=== PATIENT | female | born 1990 | race Caucasian/White ===

== ENCOUNTER → 2019-01-18 | Outpatient (CLI) | payer BC ==
[2019-01-18 12:12] LABS: HGB 13.8 gm/dL (11.4-16.0); MCH 29.2 pg (25.0-35.0); MCHC 34.4 g/dL (31.0-37.0); MCV 84.7 fL (80.0-100.0); Mean Platelet Volume 6.6; Platelet Count 329 k/uL (150-450); RBC 4.72 m/uL (3.80-5.40); RDW 14.1 % (11.5-15.5); WBC 8.3 k/uL (3.8-10.6)
[2019-01-18 18:56] LABS: HIV 1 AB Non-Reactive (Non-Reactive); HIV 2 AB Non-Reactive (Non-Reactive); HIV AB P24 Non-Reactive (Non-Reactive); HIV P24 AG Non-Reactive (Non-Reactive)
[2019-01-18 20:55] LABS: Hepatitis B Surface Antigen Non-Reactive (Non-Reactive)
== END ==
LOC: LABWHC1 10:42
PROVIDERS: ATTEND Obstetrics & Gynecology
DX: O09.291 Supervision of pregnancy with other poor reproductive or obstetric history, first trimester (principal); Z3A.00 Weeks of gestation of pregnancy not specified
CPT/HCPCS: 36415; 81420; 81422; 85027; 86762; 86780; 86850; 86900; 86901; 87086; 87340; 87390

== ENCOUNTER 2019-07-15 02:24 | Outpatient (CLI) | payer BC ==
[2019-07-15 03:52] VITALS: BP 131/86; PULSE 112; RESP 16; TEMP 96.7
--- NOTE | 2019-07-31 11:48 | P.MSEPDOC ---
Presenting Problems - Arrival Data Date of Arrival on Unit: 07/15/19 Time of Arrival on Unit: 02:24 Mode of Transport: Ambulatory - Complaint OB-Reason for Admission/Chief Complaint: Possible Onset of Labor Comment: Patient presents to triage with contractions that are approximately 7 minutes apart, that she has been experiencing contractions for about a week, but tonight they have gotten increasingly uncomfortable. Medical History - Information : 5 Para: 2 Term: 2 : 0 Abortions: Spontaneous or Elective: 2 Number of Living Children: 2 - Gestational Age Gestational Age by TERRELL (wks/days): 37 Weeks and 5 Days - History Complications: GDM Comment: Patient did not do her 3hr gtt, Dr. Seals is treating her as a gestational diabetic. Review of Systems - Review of Systems Constitutional: No problems Breast: No problems ENT: No problems Cardiovascular: No problems Respiratory: No problems Gastrointestinal: No problems Genitourinary: No problems Musculoskeletal: No problems Neurological: No problems Skin: No problems Vital Signs - Temperature Temperature: 96.7 F Temperature Source: Temporal Artery Scan - Pulse Pulse Oximetery Pulse Rate: 112 Pulse Assessment Method: Automatic Cuff - Respirations Respiratory Rate: 16 Oxygen Delivery Method: Room Air - Blood Pressure Sitting Blood Pressure: 131/86 Blood Pressure Mean: 101 Blood Pressure Source: Automatic Cuff Medical Screen Scoring (Pre) - Cervical Exam Dilation: 1-3 cm = 1 Membranes: Intact - Uterine Contractions Frequency: > 5 minutes apart = 1 Duration: > 40 seconds = 2 Intensity: N/A - Maternal Vital Signs Maternal Temperature: N/A Maternal Blood Pressure: N/A Signs of Preeclampsia: N/A Maternal Respirations: N/A - Maternal Trauma Maternal Trauma: N/A - Assessment - Baby A Baseline FHR: 130 Heart Rate - NICHD Category: Category I (Normal) = 0 NST: Reactive Position: N/A Station: N/A - Total Score - Baby A Total Score - Baby A: 4 - Total Score - Baby B Total Score - Baby B: 4 - Total Score - Baby C Total Score - Baby C: 4 - Level of Risk - Baby A Level of Risk - Baby A: Low (0-5) - Level of Risk - Baby B Level of Risk - Baby B: Low (0-5) - Level of Risk - Baby C Level of Risk - Baby C: Low (0-5) Physician Notification (Pre) - Physician Notified Physician Notified Date: 07/15/19 Physician Notified Time: 03:38 New Order Received: Yes - Notification Comment Comment: Orders given to discharge patient home, encourage patient to increased fluid intake, education on signs and symptoms of labor and labor progression, patient to follow up with Dr. Seals in the office for her regularly scheduled appt on 07/16 Disposition - Disposition OB Disposition: Discharge to home, Written follow up instructions reviewed Discharge Date: 07/15/19 Discharge Time: 03:43 I agree with the RN Medical Screening Exam: Yes Risk & Benefit of care provided described in d/c instruction: Yes Diagnosis: FALSE LABOR AT OR AFTER 37 COMPLETED WEEKS OF GESTATION
== END 2019-07-15 03:43 | disposition home or self-care (01) ==
LOC: FBPOP 02:24
PROVIDERS: ATTEND Obstetrics & Gynecology Obstetrics
DX: O47.1 False labor at or after 37 completed weeks of gestation (principal); Z3A.37 37 weeks gestation of pregnancy
CPT/HCPCS: 59025; 99213

== ENCOUNTER 2019-07-24 09:42 | Inpatient (IN) | payer BC ==
[2019-07-22 16:08] VITALS: BMI 30.2
[2019-07-24] MEDS: LACTATED RINGERS 1,000 ML IV SCH ×3 (10:25→16:24)
[2019-07-24] MEDS ORDERED: OXYTOCIN 10 UNIT/ML 1 ML VIAL IM PRN (10:39)
[2019-07-24] MEDS ORDERED: METHYLERGONOVINE 0.2 MG/ML 1 ML AMP IM PRN (10:39)
[2019-07-24] MEDS ORDERED: CARBOPROST TROMETHAMINE 250 MCG/ML 1 ML AMP IM PRN (10:39)
[2019-07-24] MEDS ORDERED: CITRIC ACID-SODIUM CITRATE 15 ML CUP PO ONE (10:43)
[2019-07-24 11:00] LABS: Basophils % (A) 0 %; Eosinophils % (A) 0 %; HCT 43.3 % (34.0-46.0); HGB 14.3 gm/dL (11.4-16.0); Lymphocytes # (A) 1.6 k/uL (1.0-4.8); Lymphocytes % (A) 16 %; MCH 28.9 pg (25.0-35.0); MCHC 32.9 g/dL (31.0-37.0); Mean Platelet Volume 7.9; Monocytes # (A) 0.4 k/uL (0-1.0); Monocytes % (A) 4 %; Neutrophils # (A) 8.1 k/uL (1.3-7.7); Neutrophils % (A) 78 %; Platelet Count 247 k/uL (150-450); RBC 4.93 m/uL (3.80-5.40); RDW 13.7 % (11.5-15.5); WBC 10.4 k/uL (3.8-10.6)
[2019-07-24] MEDS ORDERED: DEXAMETHASONE SOD PHOS (MDV) 100 MG/10 ML VIAL ONE (12:03)
[2019-07-24] MEDS ORDERED: HYDROmorphone (PF) 1 MG/ML ONE (12:03)
[2019-07-24] MEDS ORDERED: KETOROLAC 30 MG/ML 1 ML VIAL ONE (12:03)
[2019-07-24] MEDS ORDERED: OXYTOCIN 10 UNIT/ML 1 ML VIAL ONE (12:03)
[2019-07-24] MEDS ORDERED: PHENYLEPHRINE-0.9% NACL SYG 1 MG/10 ML SYRINGE ONE (12:03)
[2019-07-24] MEDS ORDERED: ONDANSETRON 4 MG/2 ML VIAL ONE (12:03)
--- NOTE | 2019-07-24 13:05 | P.HPOB ---
History of Present Illness H&P Date: 07/24/19 This is a 29-year-old white female 5 para 20-2 EDC 07/31/2019 at 39 weeks gestation. Patient presents for repeat low transverse section, she denies vaginal bleeding or fluid leakage. Fetus is been active throughout the . Obstetric history is significant for blood type O positive, rubella status immune. VDRL testing, hepatitis B surface antigen, HIV testing, group B strep cultures, gonorrhea and chlamydia cultures as well as Pap smear all negative. One-hour Glucola 148, 3 hour GTT within normal limits. 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 Past surgical history sections 2011, 2016. [place] teeth extracted in t he past. Current medications vitamins daily. ALLERGIES include eggs, and sulfa to which reports hives. Family history significant for Nuñez's syndrome and the patient's daughter, hypertension and diabetes. Social history patient is , she was previously a smoker of tobacco, one h julisa pack per day. She denies alcohol or drug use. On exam patient is 5 foot 1 inch, 160 pounds, blood pressure on admission 122/80. General physical exam is within normal limits. Chest is clear in all lazo. Extremities reveal no edema. heart rate is consistent with reactive NST. Cervix is long thick and closed. No uterine contractions are noted. Impression: 39 week intrauterine , here for repeat section and tubal ligation. All signs reassuring. Plan: For repeat low transverse section and tubal ligation utilizing Filshie clips. The risks benefits and alternatives of our plan are thoroughly discussed with the patient and her , all questions answered. Review of Systems Constitutional: Reports as per HPI Past Medical History Past Medical History: Asthma Additional Past Medical History / Comment(s): ., States being treated as Gestational Diabetes-testing herself but has not had to take any medication. History of Any Multi-Drug Resistant Organisms: None Reported Past Surgical History: Section Additional Past Surgical History / Comment(s): section 2011 & 2016. Past Anesthesia/Blood Transfusion Reactions: No Reported Reaction, Motion Sickness Past Psychological History: No Psychological Hx Reported Smoking Status: Former smoker Past Alcohol Use History: None Reported Additional Past Alcohol Use History / Comment(s): quit smoking 2 yrs ago (2018), smoked less than 1/2 ppd, smoked approx 8 years Past Drug Use History: None Reported - Past Family History Mother Family Medical History: Cancer Additional Family Medical History / Comment(s): melanoma Father Family Medical History: No Reported History Medications and Allergies Home Medications Medication Instructions Recorded Confirmed Type Pnv No.95/Ferrous Fum/Folic AC 1 each PO DAILY 07/15/19 07/22/19 History [ Multivitamin Tablet] Allergies Allergy/AdvReac Type Severity Reaction Status Date / Time Sulfa (Sulfonamide Allergy Rash/Hives Verified 07/22/19 15:40 Antibiotics) Exam Vital Signs Temp Pulse Resp BP Pulse Ox 07/24/19 10:39 97.3 F L 102 H 18 122/80 99 Intake and Output 07/23/19 07/24/19 07/24/19 22:59 06:59 14:59 Other: Weight 72.575 kg See dictation under HPI please Results Result Diagrams: 07/24/19 10:00 Abnormal Lab Results - Last 24 Hours (Table) 07/24/19 Range/Units 10:00 Neutrophils # 8.1 H (1.3-7.7) k/uL Assessment and Plan Assessment: 39 week intrauterine , for repeat low transverse section and tubal ligation. Plan: We will proceed as above. All questions addressed. Consents reviewed signed witnessed and dated. Antibiotics given. Time with Patient: Less than 30
[2019-07-24] MEDS ORDERED: NALOXONE 0.4 MG/ML 1 ML VIAL IV PRN (13:09)
[2019-07-24] MEDS ORDERED: diphenhydrAMINE 25 MG CAP PO PRN (13:09)
[2019-07-24] MEDS ORDERED: ZOLPIDEM 5 MG TAB PO PRN (13:09)
[2019-07-24] MEDS ORDERED: ONDANSETRON 4 MG/2 ML VIAL IVP PRN (13:09)
[2019-07-24] MEDS ORDERED: diphenhydrAMINE 50 MG CAP PO PRN (13:09)
[2019-07-24] MEDS ORDERED: diphenhydrAMINE 50 MG/ML 1 ML VIAL IVP PRN ×2 (13:09)
--- NOTE | 2019-07-24 13:09 | P.OP ---
Date of Procedure: 07/24/19 Preoperative Diagnosis: 39 week intrauterine , previous 2, undesired fertility Postoperative Diagnosis: Same, normal-appearing tubes and ovaries bilaterally, liveborn male . Procedure(s) Performed: Repeat low transverse section and tubal ligation with Filshie clips Anesthesia: spinal Surgeon: Florecita Seals Clam Grower #1: Karrie Omalley Estimated Blood Loss (ml): 500 IV fluids (ml): 600 Urine output (ml): 200 Pathology: none sent Condition: stable Disposition: PACU Description of Procedure: Patient is brought to Bring suite where a spinal analgesia is administered wit hout difficulty. She's placed in the dorsal supine position with left lateral uterine displacement. Delacruz catheter placed to direct drainage. Antibiotics given. The appropriate time out was performed to assure proper patient and procedural identification. Abdomen is prepped and draped in the usual sterile fashion. Analgesia is checked and noted to be adequate. Repeat low transverse skin incision is made in this is carried down through the subcutaneous tissue which is approximately 2 cm in depth. Fascia is isolated, scored, and extended bilaterally with curved Peterson scissors. Peritoneum is next identified and incised, there is no bowel or bladder involvement. Bladder flap is created with Metzenbaum scissors and at all times the bladder is Well from the operative field to avoid bladder and/or ureteral injury. A repeat low transverse uterine incision is made, artificial amniorrhexis reveals clear fluid. The incision is extended bluntly. Infant's head is delivered occiput anterior, there was no nuchal cord noted. The oropharynx, nasopharynx, and external nares were all bulb suctioned on the perineal body. Patient is officially delivered of a liveborn male infant at 1227 hours. Umbilical cord is doubly clamped and ligated, he is handed to waiting nurses for evaluation where scores of 9 and 9 at one and 5 minutes respectively are given. The placentas delivered manually, it is inspected and noted to be fully intact with trivascular cord at 1228 hours. Uterus is then externalized and massaged. Oxytocin is given. Uterus is swept clean with a sterile sponge to avoid any retained products of conception. The uterus is closed in a single full- thickness stitch of 0 Vicryl suture in a running locking manner. Bilateral tubes and ovaries are inspected and noted to be normal. Patient's consent to proceed with tubal ligation is once again confirmed. Lukasz clips are placed in the isthmic portion of both tubes, with care to traverse the entire diameter's of the tubes into the mesal salpinx. Abdomen is then suctioned behind the uterus with suction on guard. Uterus is gently placed back into the abdominal cavity. Bilateral gutters are inspected and cleaned. Uterine incision is once again noted to be clean and dry. Peritoneum is allowed to close by secondary intention. Fascia is closed in a running stitch of 0 Vicryl with over ligation in the midline for excellent reapproximation. Subcutaneous tissue is irrigated, clean and dry. It is reapproximated with 3-0 Vicryl in a running fashion. 4-0 undyed Monocryl is used for final skin closure. Steri-Strips and Mastisol are applied to the wound. All sponge needle and enhancement counts are correct at the end of the procedure. Patient is brought back to recovery room in very good condition with stable vital signs including blood pressure 108/59, pulse 92, 98% O2 saturation. Patient and her are requesting circumcision further son.
[2019-07-24] MEDS: METOCLOPRAMIDE 5 MG/ML 2 ML VIAL IVP PRN ×2 (16:09→22:13)
[2019-07-25] MEDS: LACTATED RINGERS 1,000 ML IV SCH (00:49)
[2019-07-25] MEDS: SENNOSIDES-DOCUSATE SODIUM 1 EACH TAB PO SCH ×3 (00:50→23:29)
[2019-07-25] MEDS: KETOROLAC 30 MG/ML 1 ML VIAL IVP PRN ×3 (01:29→13:26)
[2019-07-25 06:42] LABS: Basophils % (A) 0 %; Eosinophils % (A) 0 %; HCT 37.1 % (34.0-46.0); HGB 12.3 gm/dL (11.4-16.0); Lymphocytes # (A) 1.4 k/uL (1.0-4.8); Lymphocytes % (A) 10 %; MCHC 33.1 g/dL (31.0-37.0); MCV 87.4 fL (80.0-100.0); Mean Platelet Volume 8.4; Monocytes # (A) 0.8 k/uL (0-1.0); Monocytes % (A) 6 %; Neutrophils % (A) 83 %; Platelet Count 221 k/uL (150-450); RBC 4.25 m/uL (3.80-5.40); RDW 13.5 % (11.5-15.5); WBC 14.4 k/uL (3.8-10.6)
--- NOTE | 2019-07-25 08:14 | P.PN ---
Subjective Progress Note Date: 07/25/19 Principal diagnosis: Postoperative day #1 Slept well. Voiding and ambulating without difficulty. Positive flatus. Objective - Vital Signs Vital signs: Vital Signs Temp 97.7 F 07/25/19 04:00 Pulse 75 07/25/19 04:00 Resp 16 07/25/19 04:00 BP 111/75 07/25/19 04:00 Pulse Ox 98 07/25/19 04:00 Intake & Output 07/24/19 07/25/19 07/25/19 18:59 06:59 18:59 Intake Total 200 Output Total 575 1150 Balance -375 -1150 Weight 72.575 kg Intake: Oral 200 Output: Urine 1150 Uretheral (Delacruz) 100 Emesis 575 Other: # Voids 1 # Emeses 3 - Constitutional General appearance: Present: average body habitus, cooperative - EENT Eyes: Present: PERRLA ENT: Present: hearing grossly normal - Neck Neck: Present: normal ROM - Respiratory Respiratory: bilateral: CTA - Cardiovascular Rhythm: regular - Gastrointestinal General gastrointestinal: Present: normal bowel sounds - Integumentary Integumentary Comment(s): Incision clean and dry, intact, Steri-Strips applied. Fundus firm, midline, symmetric, 18 week size. - Neurologic Neurologic: Present: CNII-XII intact - Musculoskeletal Musculoskeletal: Present: gait normal, strength equal bilaterally - Psychiatric Psychiatric: Present: A&O x's 3, appropriate affect, intact judgment & insight - Labs CBC & Chem 7: 07/25/19 06:24 Labs: Abnormal Lab Results - Last 24 Hours (Table) 07/24/19 07/25/19 Range/Units 10:00 06:24 WBC 14.4 H (3.8-10.6) k/uL Neutrophils # 8.1 H 12.0 H (1.3-7.7) k/uL Assessment and Plan Assessment: Doing well postoperative day #1. Plan: Advance diet and activity. Made discontinue IV. Continue postoperative care. Likely discharge home tomorrow. Time with Patient: Less than 30
[2019-07-25] MEDS: ACETAMINOPHEN TAB 325 MG TAB PO PRN ×2 (14:24→23:29)
[2019-07-25] MEDS: IBUPROFEN 600 MG TAB PO PRN (18:04)
[2019-07-25] MEDS: SIMETHICONE 80 MG CHEWABLE PO SCH ×2 (21:44→23:29)
[2019-07-26 00:32] VITALS: RESP 16
[2019-07-26] MEDS: IBUPROFEN 600 MG TAB PO PRN ×2 (02:58→10:50)
[2019-07-26] MEDS: ACETAMINOPHEN TAB 325 MG TAB PO PRN (07:43)
[2019-07-26] MEDS: SIMETHICONE 80 MG CHEWABLE PO SCH (07:44)
[2019-07-26 08:31] VITALS: BP 115/73; PULSE 89; TEMP 98.3
[2019-07-26] MEDS: SENNOSIDES-DOCUSATE SODIUM 1 EACH TAB PO SCH (09:11)
--- NOTE | 2019-07-26 09:11 | P.DS ---
Providers Date of admission: 07/24/19 09:42 Expected date of discharge: 07/26/19 Attending physician: Florecita Seals Primary care physician: Stated None Hospital Course: This is a 29-year-old white female 5 para 20-2 EDC 07/31/2019 at 39 weeks gestation. Patient presented for repeat low transverse section and tubal ligation for undesired fertility. is essentially unremarkable, group B strep cultures negative, rubella status immune, blood type O positive. Please see dictated history and physical for details. Patient underwent a repeat low transverse section with tubal ligation under my care. She did well intraoperatively, estimated blood loss recorded at 500 mL's. She gave to a liveborn male infant with scores of 9 and 9 at one and 5 minutes respectively. Infant weighed 7 lbs. 9 oz. or 3440 g. Please see dictated operative note for details. This morning the patient is doing well. Her son has been circumcised. The patient is voiding, ambulating, passing flatus without difficulty. Vital signs are stable and she is afebrile. Incision is clean and dry, intact, with Steri- Strips applied. Extremities are negative for edema. Breast-feeding is going well. Breasts are not engorged. [place] is doing well and has been cleared for discharge home. Patient will follow-up with me in the office in 2 weeks. I've asked her to use [id number] Advil, Aleve, or Motrin as needed for pain. She could alternate this with acetaminophen as needed. She will call with any fevers shakes or chills, foul smelling or copious lochia, with the passage of large blood clots, with any pain not alleviated by [id number] products, or indeed with any concerns. Her will follow-up with clinical admissions manager as per recommendations. Patient Condition at Discharge: Good Plan - Discharge Summary Discharge Rx Participant: No New Discharge Prescriptions: No Action Pnv No.95/Ferrous Fum/Folic AC [ Multivitamin Tablet] 1 each PO DAILY Discharge Medication List Pnv No.95/Ferrous Fum/Folic AC [ Multivitamin Tablet] 1 each PO DAILY 07/15/19 [History] Follow up Appointment(s)/Referral(s): Florecita Seals MD [STAFF PHYSICIAN] - 2 Weeks Discharge Disposition: HOME SELF-CARE
== END 2019-07-26 11:30 | disposition home or self-care (01) | DRG 785 ==
LOC: 4FBP 09:42
PROVIDERS: ADMIT Obstetrics & Gynecology; ATTEND Obstetrics & Gynecology
PROC: 0UL70CZ Occlusion of Bilateral Fallopian Tubes with Extraluminal Device, Open Approach (ICD-10-PCS; 2019-07-24)
PROC: 10D00Z1 Extraction of Products of Conception, Low, Open Approach (ICD-10-PCS; principal; 2019-07-24 12:00)
DX: O34.211 Maternal care for low transverse scar from previous cesarean delivery (principal); Z3A.39 39 weeks gestation of pregnancy; Z37.0 Single live birth; Z30.2 Encounter for sterilization; Z79.899 Other long term (current) drug therapy; Z14.1 Cystic fibrosis carrier; Z87.891 Personal history of nicotine dependence; Z87.09 Personal history of other diseases of the respiratory system; Z88.2 Allergy status to sulfonamides; Z91.012 Allergy to eggs; Z80.8 Family history of malignant neoplasm of other organs or systems; Z84.81 Family history of carrier of genetic disease; Z83.3 Family history of diabetes mellitus; Z82.49 Family history of ischemic heart disease and other diseases of the circulatory system
CPT/HCPCS: 85025; 86850; 86900; 86901